=== PATIENT | female | born 1965 | race Caucasian/White ===

== ENCOUNTER 2018-01-07 10:14 | Emergency (ER) | payer OTHER ==
[2018-01-07 10:44] VITALS: BP 148/74
[2018-01-07] MEDS ORDERED: ASPIRIN PO ONE (10:44)
[2018-01-07 11:54] LABS: Basophils # (Auto) 0.1 K/mm3 (0.0-0.1); Eosinophils # (Auto) 0.1 K/mm3 (0.0-0.4); Hematocrit 43.5 % (30.3-42.9); Hemoglobin 14.6 gm/dl (10.1-14.3); Lymphocytes # (Auto) 1.3 K/mm3 (1.2-5.4); Lymphocytes % (Auto) 22.1 % (13.4-35.0); Mean Corpuscular HGB Conc 34 % (30-34); Mean Corpuscular Hemoglobin 32 pg (28-32); Mean Corpuscular Volume 97 fl (79-97); Monocytes # (Auto) 0.6 K/mm3 (0.0-0.8); Monocytes % (Auto) 11.2 % (0.0-7.3); Platelet Count 184 K/mm3 (140-440); Red Blood Count 4.51 M/mm3 (3.65-5.03); Red Cell Distribution Width 12.9 % (13.2-15.2)
[2018-01-07 12:11] LABS: BUN/Creatinine Ratio 28; Blood Urea Nitrogen 14 mg/dL (7-17); Calcium 9.2 mg/dL (8.4-10.2); Hemolysis Index 3
== END 2018-01-07 11:45 | disposition left against medical advice (07) ==
LOC: ED 10:14
DX: Z53.21 Procedure and treatment not carried out due to patient leaving prior to being seen by health care provider (principal)
CPT/HCPCS: 36415; 80048; 84484; 85025; 93005; 93010